=== PATIENT | male | born 1965 | race Caucasian/White ===

== ENCOUNTER 2017-02-27 23:43 | Emergency (ER) | payer OTHER ==
[2017-02-27 23:55] VITALS: BP 145/98; PULSE 81; RESP 15; TEMP 97.7; O2SAT 94
--- NOTE | 2017-02-28 00:48 | EDPHY ---
H & P Time Seen by Provider: 02/28/17 00:01 HPI/ROS: CC: left index finger laceration just [employer] HPI: 51 y/o male presents with a laceration to his left index finger while using a clean razor blade to shave wood on a doll house he was assembling for his daughter. It was difficult for him to contain the bleeding. Tetanus UTD. ROS: No recent illness Past Medical/Surgical History: PMH: Denied PSH: Jaw surgery NKDA MEDS: Denied Social History: Social: Denies tobacco products, ETOH or marijuana PCP: Dr. Brink Smoking Status: Never smoked Physical Exam: Gen: alert and oriented, in NAD HEENT: NC/AT, PER, EOMI Neck: supple Heart: normal peripheral perfusion Lungs: non-labored breathing Extremities: 1 cm flap laceration to the medial distal aspect of the left index finger next to nail. No foreign body. No apparent tendon or bony involvement. Sensation intact. DDx includes but is not limited to: Finger laceration Constitutional: Initial Vital Signs Temperature (C) 97.7 F 02/27/17 23:52 Heart Rate 81 02/27/17 23:52 Respiratory Rate 15 02/27/17 23:52 Blood Pressure 145/98 H 02/27/17 23:52 O2 Sat (%) 94 02/27/17 23:52 O2 Delivery Mode Room Air Allergies/Adverse Reactions: No Known Allergies Allergy (Unverified 09/20/10 20:10) Home Medications: Medication Instructions Recorded NO HOME MEDICATIONS 09/20/10 Medical Decision Making Procedures: The finger was anesthetized with 4 ml of 1% plain lidocaine by digital block with good result. The wound was cleansed and prepped in the usual sterile fashion. The wound was repaired by me with #4 4-0 Prolene simple interrupted sutures with good results. The wound was dressed by the signals collection technician. The patient tolerated the procedure well. Total time 15 minutes. ED Course/Re-evaluation: The patient was seen and examined, VS reviewed. The laceration was repaired and bandaged. Suture removal in 7 - 10 days or recheck sooner if signs of infection. Departure - Departure Disposition: Home, Routine, Self-Care Clinical Impression: Laceration of finger of left hand Condition: Good Instructions: Care For Your Stitches (ED), Finger Laceration (ED) Additional Instructions: Keep wound clean and dry. Suture removal in 7-10 days. Recheck sooner if any signs of infection. Referrals: DANIELA LEPE [Non Staff Provider (MD)] - As per Instructions
== END 2017-02-28 00:42 | disposition home or self-care (01) ==
LOC: CED 23:43
PROC: 0HQGXZZ Repair Left Hand Skin, External Approach (ICD-10-PCS; principal; 2017-02-27)
DX: S61.211A Laceration without foreign body of left index finger without damage to nail, initial encounter (principal); W45.8XXA Other foreign body or object entering through skin, initial encounter